=== PATIENT | female | born 1970 | race Caucasian/White ===

== ENCOUNTER 2021-02-12 20:16 | Emergency (ER) | payer MEDICAID ==
[~2021-02-12] VITALS: Ht 162.6 cm; Wt 153.8 kg
[2021-02-12 20:22] VITALS: BP 164/93
[2021-02-12 21:32] LABS: BASOPHILS % (AUTO) 0.6 % (0.0-2.0); EOSINOPHILS # (AUTO) 0.2 K/uL (0-0.4); EOSINOPHILS % (AUTO) 2.5 % (0.0-4.0); HEMATOCRIT 37.6 % (36-48); HEMOGLOBIN 12.5 g/dL (12.0-16.0); LYMPHOCYTES # (AUTO) 2.4 K/uL (2.5-16.5); LYMPHOCYTES % (AUTO) 32.2 % (20.5-51.1); MEAN CORPUSCULAR HEMOGLOBIN 29 pg (27-31); MEAN CORPUSCULAR HGB CONC 33 g/dL (33-37); MEAN CORPUSCULAR VOLUME 88.2 fL (80-94); MONOCYTES # (AUTO) 0.5 K/uL (0.8-1.0); NEUTROPHILS # (AUTO) 4.4 K/uL (1.8-7.7); NEUTROPHILS % (AUTO) 58.7 % (42.2-75.2); PLATELET COUNT (AUTO) 344 K/uL (140-450); RED BLOOD CELL COUNT(AUTO) 4.26 MIL/uL (4.20-5.40); RED CELL DISTRIBUTION WIDTH 15.3 % (11.6-13.7); WHITE BLOOD COUNT (AUTO) 7.5 K/uL (4.8-10.8)
[2021-02-12 21:54] LABS: ALBUMIN 3.6 g/dL (3.4-5.0); ANION GAP 11.6 (8-16); CARBON DIOXIDE 29.7 mmol/L (21-32); CREATININE 0.8 mg/dL (0.6-1.3); POTASSIUM 3.3 mmol/L (3.5-5.1); TOTAL BILIRUBIN 0.5 mg/dL (0.0-1.0)
[2021-02-12] MEDS ORDERED: FURO-572 PO (22:14)
[2021-02-12] MEDS ORDERED: FUROSEMIDE 20 MG TAB PO ONE (22:15)
[2021-02-12 22:40] VITALS: BP 164/93
== END 2021-02-12 22:40 | disposition home or self-care (01) ==
LOC: MED 20:32
DX: R60.0 Localized edema (principal); M79.604 Pain in right leg; Z88.1 Allergy status to other antibiotic agents; Z79.899 Other long term (current) drug therapy
CPT/HCPCS: 36415; 71045; 80053; 83880; 84484; 85025; 93005; 93971; 99285

== ENCOUNTER 2024-09-05 20:55 | Emergency (ER) | payer MEDICAID ==
[~2024-09-05] VITALS: Ht 162.6 cm; Wt 153.5 kg
[~2024-09-05 20:55] MED LIST: FURO-572 PO
[2024-09-05 21:36] VITALS: BP 123/61; PULSE 73; RESP 22; TEMP 97.8; O2SAT 95
[2024-09-05 22:23] VITALS: BP 112/60; PULSE 73; RESP 15; O2SAT 100
[2024-09-05 22:46] LABS: APPEARANCE,URINE CLEAR (CLEAR); BILIRUBIN,URINE NEGATIVE (NEGATIVE); BLOOD, URINE NEGATIVE (NEGATIVE); COLOR,URINE YELLOW (YELLOW); LEUKOCYTE ESTERASE ,URINE NEGATIVE (NEGATIVE); NITRITE, URINE NEGATIVE (NEGATIVE); PROTEIN,URINE NEGATIVE (NEGATIVE); UGLUCOSE NEGATIVE (NEGATIVE); UROBILINOGEN,URINE 0.2 EU/dL (0.2 - 1)
[2024-09-05] MEDS: KETOROLAC 60 MG/2 ML VIAL IM ONE (23:29)
[2024-09-05] MEDS ORDERED: ACET-8905 PO (23:39)
== END 2024-09-05 23:52 | disposition home or self-care (01) ==
LOC: MED 20:55
DX: M54.50 Low back pain, unspecified (principal); R03.0 Elevated blood-pressure reading, without diagnosis of hypertension; J45.909 Unspecified asthma, uncomplicated; Z90.49 Acquired absence of other specified parts of digestive tract; Z98.890 Other specified postprocedural states; Z79.899 Other long term (current) drug therapy; Z88.0 Allergy status to penicillin
CPT/HCPCS: 81003; 81025; 96372; 99283; J1885